=== PATIENT | male | born 1970 | race Caucasian/White ===

== ENCOUNTER 2025-10-01 11:55 | Outpatient (CLI) | payer OTHER, SELFPAY | END 2025-10-01 11:56 | disposition home or self-care (01) | PROVIDERS: PCP Family Medicine; Visit Provider Family Medicine | DX: R10.9 Unspecified abdominal pain (principal); Z13.9 Encounter for screening, unspecified | CPT/HCPCS: 80048; 80076; 83690; 85025; G0103 ==

== ENCOUNTER 2025-10-23 12:45 | Outpatient (CLI) | payer OTHER, SELFPAY ==
--- NOTE | 2025-10-23 13:00 | CRLHL7_ITS ---
For Patients: As a result of the Century Cures Act, medical imaging exams and procedure reports are released immediately into your electronic medical record. You may view this report before your referring provider. If you have questions, please contact your health care provider. CLINICAL HISTORY: generalized abdominal pain COMPARISON: none TECHNIQUE: Real time [place] scale imaging and color Doppler analysis was performed of the abdomen. Overall exam is limited by bowel gas. FINDINGS: Sonographic imaging demonstrates normal size and uniform echotexture of the visualized liver. The visualized spleen is of normal size. The visualized pancreas appears normal. The proximal abdominal aorta and IVC appear normal. There is no evidence of ascites. The gallbladder is of normal size and there is no evidence of sludge or stones within the gallbladder lumen. The gallbladder wall measures 3.1 mm in thickness. The common bile duct measures 3.6 mm in size within the joan hepatis. Simple circumscribed cyst left kidney measures 4.1 x 3.7 x 3.3 cm. Simple cyst right kidney measures 1.9 x 1.8 x 2.0 cm. The right kidney measures 9.9 cm in length and the left kidney measures 11.5 cm. There is no evidence of a renal calculus or hydronephrosis. IMPRESSION: Unremarkable exam. Incidental simple renal cysts. Dictated by Adrian Zamora MD @ 10/23/2025 3:04:30 PM (Electronically Signed)
== END 2025-10-23 12:46 | disposition home or self-care (01) ==
LOC: US 12:45
PROVIDERS: PCP Family Medicine; Visit Provider Family Medicine
DX: R10.9 Unspecified abdominal pain (principal)
CPT/HCPCS: 76700